=== PATIENT | male | born 1935 | race Caucasian/White ===

== ENCOUNTER 2019-05-11 21:09 | Emergency (ER) | payer MEDICARE, OTHER ==
[~2019-05-11] VITALS: Ht 182.9 cm; Wt 94.3 kg
--- NOTE | 2019-05-11 22:49 | PHYS DOC ---
Past Medical History Past Medical History: High Cholesterol, Hypertension, IN Past Surgical History: Coronary Bypass Surgery, Pacemaker Additional Past Surgical Histo: EYE, PROSTATE, Alcohol Use: None Drug Use: None Adult General Chief Complaint Chief Complaint: BLOOD IN URINE [facility] HPI Patient is a 83 year old male who presents with complaining of bloody urine. Patient states he has history of BPH and also taking Coumadin related to CBAG with increasing the dose of Coumadin 2 weeks ago because of INR of 1.9. Patient states he is supposed to check his INR today but because of lack of assisted was not able to check his INR. Patient complaining of mild hematuria but today had gross hematuria without pain, nausea and vomiting, fever and chills, dysuria, urinary frequency, ecchymosis or other bleeding. Review of Systems Review of Systems Constitutional: Denies fever or chills [] Eyes: Denies change in visual acuity, redness, or eye pain [] HENT: Denies nasal congestion or sore throat [] Respiratory: Denies cough or shortness of breath [] Cardiovascular: No additional information not addressed in HPI [] GI: Denies abdominal pain, nausea, vomiting, bloody stools or diarrhea [] : Denies dysuria , reports hematuria [] Musculoskeletal: Denies back pain or joint pain [] Integument: Denies rash or skin lesions [] Neurologic: Denies headache, focal weakness or sensory changes [] Endocrine: Denies polyuria or polydipsia [] All other systems were reviewed and found to be within normal limits, except as documented in this note. Allergies Allergies Allergies Coded Allergies Type Severity Reaction Last Updated Verified No Known Drug Allergies 05/11/19 No Physical Exam Physical Exam Constitutional: Well developed, well nourished, no acute distress, non-toxic appearance. [] HENT: Normocephalic, atraumatic, oropharynx moist. Eyes: PERRLA, EOMI, conjunctiva normal, no discharge. [] Neck: Normal range of motion, no tenderness, supple, no stridor. [] Cardiovascular:Heart rate regular rhythm, no murmur [] Lungs & Thorax: Bilateral breath sounds clear to auscultation [] Abdomen: Bowel sounds normal, soft, no tenderness, no masses, no pulsatile masses. [] Skin: Warm, dry, no erythema, no rash. [] Back: No tenderness, no CVA tenderness. [] Extremities: No tenderness, no cyanosis, no clubbing, ROM intact, no edema. [] Neurologic: Alert and oriented X 3, normal motor function, normal sensory function, no focal deficits noted. [] Psychologic: Affect normal, judgement normal, mood normal. [] Current Patient Data Vital Signs Vital Signs Date Time Temp Pulse Resp B/P (MAP) Pulse Ox O2 Delivery O2 Flow Rate FiO2 05/12/19 00:34 65 18 143/88 (106) 99 Room Air 05/11/19 21:50 97.7 97.7 Lab Values Laboratory Tests Test 05/11/19 23:11 05/11/19 23:35 Urine Collection Type Unknown Urine Color Red Urine Clarity Bloody Urine pH Urine Specific [place] Urine Protein mg/dL (NEG-TRACE) Urine Glucose (UA) mg/dL (NEG) Urine Ketones (Stick) mg/dL (NEG) Urine Blood (NEG) Urine Nitrite (NEG) Urine Bilirubin (NEG) Urine Urobilinogen Dipstick mg/dL (0.2 mg/dL) Urine Leukocyte Esterase (NEG) Urine RBC Tntc /HPF (0-2) Urine WBC 5-10 /HPF (0-4) Urine Squamous Epithelial Cells None /LPF Urine Bacteria 0 /HPF (0-FEW) White Blood Count 7.4 x10^3/uL (4.0-11.0) Red Blood Count 4.59 x10^6/uL (4.30-5.70) Hemoglobin 14.6 g/dL (13.0-17.5) Hematocrit 43.0 % (39.0-53.0) Mean Corpuscular Volume 94 fL (79-100) Mean Corpuscular Hemoglobin 32 pg (25-35) Mean Corpuscular Hemoglobin Concent 34 g/dL (31-37) Red Cell Distribution Width 14.4 % (11.5-14.5) Platelet Count 149 x10^3/uL (140-400) Neutrophils (%) (Auto) 53 % (31-73) Lymphocytes (%) (Auto) 26 % (24-48) Monocytes (%) (Auto) 10 % (0-9) H Eosinophils (%) (Auto) 10 % (0-3) H Basophils (%) (Auto) 1 % (0-3) Neutrophils # (Auto) 3.9 x10^3uL (1.8-7.7) Lymphocytes # (Auto) 1.9 x10^3/uL (1.0-4.8) Monocytes # (Auto) 0.8 x10^3/uL (0.0-1.1) Eosinophils # (Auto) 0.7 x10^3/uL (0.0-0.7) Basophils # (Auto) 0.1 x10^3/uL (0.0-0.2) Prothrombin Time 26.9 SEC (11.7-14.0) H Prothrombin Time INR 2.5 (0.8-1.1) H Sodium Level 140 mmol/L (136-145) Potassium Level 4.0 mmol/L (3.5-5.1) Chloride Level 102 mmol/L (98-107) Carbon Dioxide Level 31 mmol/L (21-32) Anion Gap 7 (6-14) Blood Urea Nitrogen 29 mg/dL (8-26) H Creatinine 1.8 mg/dL (0.7-1.3) H Estimated GFR (Cockcroft-Gault) 36.1 Glucose Level 107 mg/dL (70-99) H Calcium Level 9.0 mg/dL (8.5-10.1) Laboratory Tests 05/11/19 23:35 Laboratory Tests 05/11/19 23:35 EKG EKG [] Radiology/Procedures Radiology/Procedures [] Course & Med Decision Making Course & Med Decision Making Pertinent Labs reviewed. (See chart for details) Evaluation of patient in ER showed 83-year-old male patient on Coumadin p resented to ER because hematuria. Patient had gross hematuria with INR was 2.5 anemia or electrolyte problem. 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 Dragon Disclaimer Dragon Disclaimer This electronic medical record was generated, in whole or in part, using a voice recognition dictation system. Departure Departure Impression: Primary Impression: Hemorrhage secondary to anti-coagulation Additional Impressions: Hematuria Renal insufficiency Disposition: HOME, SELF-CARE (at 0016) Condition: STABLE Referrals: KRISTA LYN MD (PCP) PEREZ GALLARDO MD Patient Instructions: Hematuria, Adult, Warfarin Coagulopathy Additional Instructions: Drink plenty of liquids Follow-up with your primary care physician in 3-5 days Return to ER if not getting better Follow-up with on-call urologist in one or 2 days Hold Coumadin for one day Problem Qualifiers Additional Impressions: Hematuria Hematuria type: gross Qualified Codes: R31.0 - Gross hematuria MISHEL CH MD May 11, 2019 22:49
[2019-05-11 23:37] LABS: CLARITY,URINE BLOODY; COLOR,URINE RED; RBC,URINE TNTC /HPF (0-2)
[2019-05-11 23:39] LABS: BACTERIA,URINE 0 /HPF (0-FEW)
[2019-05-11 23:44] LABS: BASO # 0.1 x10^3/uL (0.0-0.2); BASO % 1 % (0-3); EOS # 0.7 x10^3/uL (0.0-0.7); EOS % 10 % (0-3); HEMOGLOBIN 14.6 g/dL (13.0-17.5); LYMPH # 1.9 x10^3/uL (1.0-4.8); LYMPH % 26 % (24-48); MEAN CORPUSCULAR HEMOGLOBIN 32 pg (25-35); MEAN CORPUSCULAR HGB CONC 34 g/dL (31-37); MEAN CORPUSCULAR VOLUME 94 fL (79-100); MONO # 0.8 x10^3/uL (0.0-1.1); MONO % 10 % (0-9); NEUT # 3.9 x10^3uL (1.8-7.7); NEUT % 53 % (31-73); PLATELET COUNT 149 x10^3/uL (140-400); RED BLOOD COUNT 4.59 x10^6/uL (4.30-5.70); RED CELL DISTRIBUTION WIDTH 14.4 % (11.5-14.5); WHITE BLOOD COUNT 7.4 x10^3/uL (4.0-11.0)
[2019-05-11 23:52] LABS: CREATININE 1.8 mg/dL (0.7-1.3); GFR 36.1
[2019-05-11 23:53] LABS: PROTHROMBIN TIME PATIENT 26.9 SEC (11.7-14.0)
[2019-05-12 00:34] VITALS: BP 143/88
== END 2019-05-12 00:35 | disposition home or self-care (01) ==
LOC: ER 21:09
DX: D68.32 Hemorrhagic disorder due to extrinsic circulating anticoagulants (principal); R31.0 Gross hematuria; N28.9 Disorder of kidney and ureter, unspecified; T45.515A Adverse effect of anticoagulants, initial encounter; E78.00 Pure hypercholesterolemia, unspecified; I10 Essential (primary) hypertension; I25.2 Old myocardial infarction; N40.1 Benign prostatic hyperplasia with lower urinary tract symptoms; Z95.0 Presence of cardiac pacemaker; Z95.1 Presence of aortocoronary bypass graft; Y92.89 Other specified places as the place of occurrence of the external cause
CPT/HCPCS: 36415; 80048; 81001; 85025; 85610; 87086; 99284

== ENCOUNTER → 2019-05-21 | Outpatient (CLI) | payer MEDICARE, OTHER ==
[2019-05-12 00:34] VITALS: BP 143/88
--- NOTE | 2019-05-21 09:31 | KCIC ---
COMPLETE ABDOMINAL ULTRASOUND Clinical History: Gross hematuria. Comparison: Renal ultrasound 12/18/2015. Technique: Sonographic examination of the abdomen was performed and multiple grayscale and color Doppler static images were obtained. Findings: Due to overlying bowel gas the pancreas, IVC, aorta, and left hepatic lobe are not well-visualized. Most of the liver is visualized and is homogeneous. The liver measures 17.2 cm, upper limits of normal. Ultrasound is not sensitive for detecting solid liver lesions. Portal flow is hepatopetal. The common bile duct is normal in caliber, measuring 3 mm in diameter. The gallbladder wall is normal. Per report, sonographic Layton sign is negative. There is no cholelithiasis or pericholecystic fluid. Cyst of the right kidney has increased in size measuring up to 3.8 cm, previously 1.7 cm. Cyst of the left kidney has also increased in size measuring up to 2.8 cm, previously 1.7 cm. The right kidney is normal in echotexture and measures 10.5 cm. The left kidney is normal in echotexture and measures 11.4 cm. Corticomedullary differentiation is preserved. There is no hydronephrosis. Bilateral ureteral jets are noted in the urinary bladder. There is no obvious urinary bladder wall thickening. The spleen is not enlarged, measuring 12 cm. IMPRESSION: 1. Bilateral renal cysts, increased in size from prior study. 2. Midline structures are obscured due to overlying bowel gas. Electronically signed by: César Montesinos MD (05/21/2019 9:29 AM) [id number]
== END | disposition home or self-care (01) ==
LOC: KCIC US 07:45
PROVIDERS: ATTEND Urology
DX: N28.1 Cyst of kidney, acquired (principal)
CPT/HCPCS: 76700